=== PATIENT | female | born 1970 | race Caucasian/White ===

== ENCOUNTER 2020-11-22 15:49 | Emergency (ER) | payer MEDICAID ==
--- NOTE | 2020-11-22 16:13 | EDM.PDOC ---
ED HPI GENERAL MEDICAL PROBLEM - General Chief Complaint: Flank Pain Stated Complaint: R RIB PAIN Time Seen by Provider: 11/22/20 16:00 Source of Information: Reports: Patient History Limitations: Reports: No Limitations - History of Present Illness INITIAL COMMENTS - FREE TEXT/NARRATIVE: 50-year-old female who reports is in her bed late Monday night/early Monday morning (11/20-11/21/2020) and she was reaching over the bed to pick something up from the side of the bed and she felt a pop in her right to her lateral chest. She had immediate pain in the area and has had pain in that area since this occurred. It is a sharp pain. It was worse with movement and with deep breaths. She has had no difficulty breathing. There has been no hemoptysis. She has no abdominal pain. The pain is completely reproducible with palpation and with movement. She had no pain in the area prior to this occurring. She rates pain as a 5/10 now but with and becomes a sharp pain that is stabbing and is a 10/10. She presents via private vehicle. No weakness or dizziness. No nausea or vomiting. There are no other associated signs or symptoms. There are no other modifying factors. 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: Acetaminophen - Related Data Allergies Allergy/AdvReac Type Severity Reaction Status Date / Time acetaminophen [From Percocet] Allergy Rash Verified 11/22/20 16:16 amoxicillin trihydrate Allergy Rash Verified 11/22/20 16:16 [From Augmentin] morphine Allergy Rash Verified 11/22/20 16:16 oxycodone [From Percocet] Allergy Rash Verified 11/22/20 16:16 potassium clavulanate Allergy Rash Verified 11/22/20 16:16 [From Augmentin] tramadol Allergy Itching Verified 11/22/20 16:16 Home Meds: Home Meds NK [No Known Home Meds] 11/22/20 [History] Past Medical History - Past Health History Medical/Surgical History: Denies Medical/Surgical History (Denies any chronic medical problems. Surgical history as detailed below.) - Past Surgical History GI Surgical History: Reports: Cholecystectomy Female Surgical History: Reports: Hysterectomy Social & Family History - Tobacco Use Tobacco Use Status *Q: Current Every Day Tobacco User - Alcohol Use Alcohol Use History: No - Living Situation & Occupation Social History Comment: She is visiting her sister. She is from [place]. ED ROS GENERAL - Review of Systems Review Of Systems: See Below Constitutional: Reports: No Symptoms HEENT: Reports: No Symptoms Respiratory: Reports: No Symptoms, Pleuritic Chest Pain (As above.) Cardiovascular: Reports: Chest Pain Endocrine: Reports: No Symptoms GI/Abdominal: Reports: No Symptoms : Reports: No Symptoms Musculoskeletal: Reports: No Symptoms Skin: Reports: No Symptoms Neurological: Reports: No Symptoms Psychiatric: Reports: No Symptoms Hematologic/Lymphatic: Reports: No Symptoms Immunologic: Reports: No Symptoms ED EXAM, GENERAL - Physical Exam Exam: See Below Exam Limited By: No Limitations General Appearance: Alert, WD/WN, Mild Distress, Other (She appears nontoxic. No respiratory distress.) Eye Exam: Bilateral Eye: EOMI, Normal Inspection Ears: Normal External Exam, Hearing Grossly Normal Ear Exam: Bilateral Ear: Auricle Normal Nose: Normal Inspection, Normal Mucosa, No Blood Throat/Mouth: Normal Inspection, Normal Oropharynx, Normal Voice, No Airway Compromise Head: Atraumatic, Normocephalic Neck: Normal Inspection, Supple, Non-Tender, Full Range of Motion Respiratory/Chest: No Respiratory Distress, Lungs Clear, Normal Breath Sounds, No Accessory Muscle Use, Other (Tender over right anterior lateral chest. No cr epitus. No subcutaneous emphysema.) Cardiovascular: Normal Peripheral Pulses, Regular Rate, Rhythm, No Murmur Peripheral Pulses: 2+: Radial (L), Radial (R) GI/Abdominal: Normal Bowel Sounds, Soft, Non-Tender, No Mass Back Exam: Normal Inspection Extremities: Normal Inspection, Normal Range of Motion, Non-Tender, Normal Capillary Refill, No Pedal Edema Neurological: Alert, Oriented, CN II-XII Intact, Normal Cognition, No Motor/Sensory Deficits Psychiatric: Normal Affect, Normal Mood Skin Exam: Warm, Dry, Intact, Normal Color, No Rash Course - Orders/Labs/Meds Orders: Active Orders 24 hr Category Date Time Status Ribs 2V w Chest Rt [CR] Stat Exams 11/22/20 16:14 Taken Meds: Medications Discontinued Medications Generic Name Dose Route Start Last Admin Trade Name Juan PRN Reason Stop Dose Admin Ketorolac Tromethamine 60 mg 11/22/20 16:14 11/22/20 16:22 Ketorolac 60 Mg/2 Ml Sdv IM 11/22/20 16:15 60 mg ONETIME ONE Administration - Radiology Interpretation Free Text/Narrative:: Chest x-ray with right rib detail shows no definite fracture. There is also no pneumothorax or any other acute abnormalities seen. - Re-Assessments/Exams Free Text/Narrative Re-Assessment/Exam: 11/22/20 17:00: Chest x-ray and right rib detail shows no fracture or pneumothorax. She continues to be hemodynamically and respiratory stable. She appears in no acute distress at rest. I will have the patient take deep breaths to keep her lungs expanded and try to prevent pneumonia. She can also take ibuprofen and Tylenol as needed for pain. Precautions and reasons for return to the emergency department were discussed with the patient while she was in the emergency department and were detailed in the patient's discharge instructions. Departure - Departure Time of Disposition: 17:15 Disposition: Home, Self-Care 01 Clinical Impression: Right-sided chest wall pain, Elevated blood pressure reading Rib fracture Qualifiers: Encounter type: initial encounter Rib fracture type: single rib Fracture type: closed Laterality: right Qualified Code(s): S22.31XA - Fracture of one rib, right side, initial encounter for closed fracture - Discharge Information Instructions: Chest Wall Pain, [id number], Rib Fracture, [id number] Referrals: PCP,None [Primary Care Provider] - Forms: ED Department Discharge Additional Instructions: Your chest x-ray looked normal. I did not see any definite evidence of a rib fr acture or any other abnormality. You appear to have a rib fracture, however. There is nothing specific to be done about a rib fracture except to take good deep breaths frequently to keep your lungs expanded and to try to prevent pneumonia. You can take ibuprofen and Tylenol as needed for pain. Follow-up with your primary doctor as needed. Back to the emergency department for coughing up blood, trouble breathing, fever, marked increase in pain or any other concerning sign or symptom. Your blood pressure was elevated in the emergency department. You will need to follow-up with your primary provider as this could mean that you have hypertension. - My Orders Last 24 Hours: My Active Orders 11/22/20 16:14 Ribs 2V w Chest Rt [CR] Stat - Assessment/Plan Last 24 Hours: My Active Orders 11/22/20 16:14 Ribs 2V w Chest Rt [CR] Stat
[2020-11-22] MEDS: Ketorolac 60 MG/2 ML SDV IM ONE (16:22)
[2020-11-22 20:11] VITALS: BP 140/101; PULSE 101
--- NOTE | 2020-11-23 11:38 | CR ---
INDICATION: Injury - bent over and felt a pop with secondarily there being pain in the right chest. RIGHT RIBS WITH CHEST: PA view of the chest and six images of the right ribs were obtained 11/22/20 and compared with 02/12/14 PA chest. Infiltrate at the right lung base has resolved compared with the previous study. There are again noted some slightly heavy markings at the medial left lung base, likely fibrotic in nature. Heavy markings at the costophrenic angle on the left are diminished in prominence suggesting minimal residual fibrosis in that area. A definite active infiltrate, effusion, contusion or pneumothorax was not identified. There is noted an interval healed fracture of the proximal right humerus compared with 2014. The heart did not appear enlarged. The aorta is calcified in the arch area. The six images of the right ribs obtained failed to reveal a displaced rib fracture site or other acute abnormality. There was difficulty in visualizing the ribs adequately, however, with relatively low bone mineral density suggested in this patient raising question of osteoporosis - correlate clinically. IMPRESSION: 1. No definite acute process. 2. Question demineralization bony structures making visualization of the ribs difficult. If symptoms persist - if occult fracture site is suspected clinically, reexamination in 10 to 14 days or more efficaciously, CT examination may be of further diagnostic benefit. MTDD
== END 2020-11-22 17:20 | disposition home or self-care (01) ==
LOC: FB.ED 15:49
DX: S22.31XA Fracture of one rib, right side, initial encounter for closed fracture (principal); R03.0 Elevated blood-pressure reading, without diagnosis of hypertension; Z88.6 Allergy status to analgesic agent; Z88.1 Allergy status to other antibiotic agents; Z88.5 Allergy status to narcotic agent; Z88.8 Allergy status to other drugs, medicaments and biological substances; Z72.0 Tobacco use; X58.XXXA Exposure to other specified factors, initial encounter
CPT/HCPCS: 71101; 96372; 99283; J1885

== ENCOUNTER 2022-05-06 20:08 | Observation (INO) | payer MEDICAID ==
[2022-05-06 21:07] LABS: ESTIMATED GFR 89 mL/min (>60)
[2022-05-06] MEDS: Lactated Ringers 1,000 ML IV ONE (21:30)
[2022-05-06] MEDS: Potassium Chloride 20 MEQ Tab.ER PO ONE (21:57)
[2022-05-06] MEDS: Metoprolol Succinate 25 MG Tab.ER PO SCH (22:49)
[2022-05-06] MEDS: Enoxaparin 40 MG/0.4 ML Syringe SUBCUT SCH (22:53)
[2022-05-06] MEDS: Enoxaparin 30 MG/0.3 ML Syringe SUBCUT SCH (23:13)
[2022-05-07] MEDS: Acetaminophen 325 MG Tab PO PRN (00:12)
[2022-05-07 06:34] LABS: ESTIMATED GFR 104 mL/min (>60)
[2022-05-07] MEDS ORDERED: Potassium Chloride 20 MEQ Tab.ER PO SCH ×2 (09:00)
[2022-05-07 09:03] VITALS: PULSE 80
[2022-05-07] MEDS: Lisinopril 10 MG Tab PO SCH (09:33)
[2022-05-07] MEDS: Potassium Chloride 20 MEQ Tab.ER PO SCH (09:33)
[2022-05-07 09:34] VITALS: BP 128/79
[2022-05-07] MEDS: Iopamidol 755 Mg/ML 100 ML Bottle IV ONE (09:34)
[2022-05-07] MEDS: Acetaminophen 500 MG Tab PO SCH (13:32)
[2022-05-07] MEDS: Ibuprofen 200 MG Tab PO SCH (15:14)
[2022-05-07] MEDS: Acetaminophen/HYDROcodone 325-10 MG Tab PO PRN (15:14)
== END 2022-05-07 15:30 | disposition home or self-care (01) ==
LOC: FB.ED 20:21 → UNDOADMOB 21:42 → FB.MS 21:42 → UNDOADMOB 21:47
PROVIDERS: ADMIT Family Medicine; ATTEND Family Medicine
DX: S22.059A Unspecified fracture of T5-T6 vertebra, initial encounter for closed fracture (principal); I10 Essential (primary) hypertension; E87.6 Hypokalemia; F17.210 Nicotine dependence, cigarettes, uncomplicated; Z88.6 Allergy status to analgesic agent; Z88.0 Allergy status to penicillin; Z88.5 Allergy status to narcotic agent; Z79.899 Other long term (current) drug therapy; Z90.49 Acquired absence of other specified parts of digestive tract; Z90.710 Acquired absence of both cervix and uterus
CPT/HCPCS: 36415; 71046; 71275; 80048; 80053; 83735; 84484; 85025; 93005; 96360; 96372; 99285; A9270; G0378; J1650; J7120; Q9967; 99217; 99219

== ENCOUNTER 2024-02-15 20:06 | Emergency (ER) | payer MEDICAID ==
[2024-02-15 20:25] VITALS: BP 151/92; PULSE 86
[2024-02-15] MEDS: HYDROmorphone 2 MG/ML SDV IM ONE (20:32)
[2024-02-15] MEDS: hydrOXYzine HCl 50 MG/ML SDV IM ONE (20:32)
== END 2024-02-15 21:52 | disposition home or self-care (01) ==
LOC: FB.ED 20:06
DX: S39.012A Strain of muscle, fascia and tendon of lower back, initial encounter (principal); Z90.49 Acquired absence of other specified parts of digestive tract; Z88.8 Allergy status to other drugs, medicaments and biological substances; Z88.0 Allergy status to penicillin; Z88.5 Allergy status to narcotic agent; X50.0XXA Overexertion from strenuous movement or load, initial encounter; Y93.F2 Activity, caregiving, lifting
CPT/HCPCS: 96372; 99283; J1170; J3410

== ENCOUNTER 2025-06-09 00:53 | Emergency (ER) | payer MEDICAID ==
[2025-06-09] MEDS ORDERED: Sodium Chloride 0.9% 10 ML Syringe FLUSH PRN (01:43)
[2025-06-09 02:10] LABS: BASOPHILS ABSOLUTE AUTO 0.0 x10-3/uL (0.0-0.1); BASOPHILS PERCENT AUTO 0.3 % (0.2-1.5); EOSINOPHILS ABSOLUTE AUTO 0.4 x10-3/uL (0.0-0.8); EOSINOPHILS PERCENT AUTO 4.2 % (0.6-8.1); LYMPHOCYTES ABSOLUTE AUTO 1.5 x10-3/uL (1.0-4.4); LYMPHOCYTES PERCENT AUTO 14.7 % (18.4-52.1); MEAN PLATELET VOLUME 8.2 fL (7.1-12.4); MONOCYTES ABSOLUTE AUTO 0.6 x10-3/uL (0.3-1.0); MONOCYTES PERCENT AUTO 5.4 % (4.4-15.7); NEUTROPHILS ABSOLUTE AUTO 7.8 x10-3/uL (1.5-6.3); NEUTROPHILS PERCENT AUTO 75.4 % (30.8-76.2); PLATELET COUNT,PLT 327 x10(3)uL (151-488); RED BLOOD CELL COUNT 4.03 x10(6)uL (3.60-5.20); RED CELL DISTRIBUTION WIDTH 12.7 % (12.3-16.5); WHITE BLOOD CELL COUNT,WBC 10.4 x10-3/uL (3.0-10.3)
[2025-06-09 02:17] LABS: BLOOD UREA NITROGEN,BUN 12 mg/dL (7-18); CARBON DIOXIDE,CO2 33 mmol/L (21-32); CHLORIDE,CL 104 mmol/L (100-110); CREATININE 0.7 mg/dL (0.55-1.02); ESTIMATED GFR 102 mL/min (>60); GLUCOSE RANDOM 117 mg/dL (80-116); POTASSIUM,K 3.4 mmol/L (3.5-5.3); SODIUM,NA 142 mmol/L (135-145)
[2025-06-09 02:23] LABS: A/G RATIO 0.7; ALANINE AMINOTRANSFERASE,ALT 14 U/L (12-36); ASPARTATE AMNIOTRANSFERASE,AST 16 IU/L (5-25); BILIRUBIN TOTAL 0.3 mg/dL (0.1-1.3); PROTEIN TOTAL,TP 8.3 g/dL (6.0-8.0)
[2025-06-09] MEDS ORDERED: Naloxone 0.4 MG/ML SDV IVPUSH PRN (04:13)
[2025-06-09] MEDS: fentaNYL 100 MCG/2 ML SDV IVPUSH ONE (04:19)
[2025-06-09 06:07] VITALS: BP 112/76; PULSE 92
== END 2025-06-09 06:00 | disposition home or self-care (01) ==
LOC: FB.ED 00:53
DX: M62.830 Muscle spasm of back (principal); S22.050A Wedge compression fracture of T5-T6 vertebra, initial encounter for closed fracture; S22.060A Wedge compression fracture of T7-T8 vertebra, initial encounter for closed fracture; S32.010A Wedge compression fracture of first lumbar vertebra, initial encounter for closed fracture; F15.10 Other stimulant abuse, uncomplicated; M80.08XA Age-related osteoporosis with current pathological fracture, vertebra(e), initial encounter for fracture; J44.9 Chronic obstructive pulmonary disease, unspecified; F17.200 Nicotine dependence, unspecified, uncomplicated; Z88.8 Allergy status to other drugs, medicaments and biological substances; Z88.5 Allergy status to narcotic agent; Z79.899 Other long term (current) drug therapy; X58.XXXA Exposure to other specified factors, initial encounter
CPT/HCPCS: 36415; 71045; 72072; 72128; 80053; 83735; 83880; 84484; 85025; 85379; 93005; 96374; 96375; 99285; J3010; J3360